=== PATIENT | female | born 1965 | race Caucasian/White ===

== ENCOUNTER 2017-05-26 11:31 | Emergency (ER) | payer OTHER ==
--- NOTE | 2017-05-26 12:04 | ER Document Report ---
ED GI/ - General Chief Complaint: Loose Stools Stated Complaint: POSSIBLE VIRUS Time Seen by Provider: 05/26/17 11:58 Mode of Arrival: Ambulatory Information source: Patient TRAVEL OUTSIDE OF THE [place] IN LAST 30 DAYS: No - HPI Patient complains to provider of: Other - loose stool Onset: Just prior to arrival - pt. had been taking care of her dad at home before he recently got admitted to [facility] (where he is now). He was recently diagnosed with C. diff and daughter wants to know if she contracted it as well. - Related Data Allergies/Adverse Reactions: sumatriptan [From Imitrex] Allergy (Intermediate, Verified 05/26/17 11:43) breathing issues sumatriptan succinate [From Imitrex] Allergy (Intermediate, Verified 05/26/17 11 :43) breathing issues topiramate [From Topamax] Allergy (Mild, Verified 05/26/17 11:43) grinding, clenching aspirin [Aspirin] Adverse Reaction (Verified 05/26/17 11:43) Nausea Past Medical History - Social History Smoking Status: Never Smoker Chew tobacco use (# tins/day): No Frequency of alcohol use: Rare Drug Abuse: None Family History: Reviewed & Not Pertinent - Past Medical History Cardiac Medical History: Denies: Hx Coronary Artery Disease, Hx Heart Attack, Hx Hypercholesterolemia , Hx Hypertension Pulmonary Medical History: Denies: Hx Asthma, Hx Bronchitis, Hx COPD, Hx Pneumonia Neurological Medical History: Denies: Hx Cerebrovascular Accident, Hx Seizures Renal/ Medical History: Denies: Hx Peritoneal Dialysis Musculoskeltal Medical History: Denies Hx Arthritis Past Surgical History: Reports: Hx Abdominal Surgery, Hx Section, Hx Hysterectomy, Hx Tonsillectomy, Hx Urinary Tract Surgery - bladder sling. Denies: Hx Pacemaker - Immunizations Hx Diphtheria, Pertussis, Tetanus Vaccination: No Review of Systems - Review of Systems EENT: No symptoms reported Cardiovascular: No symptoms reported Respiratory: No symptoms reported Gastrointestinal: Other - mucous in stool Musculoskeletal: No symptoms reported -: Yes All other systems reviewed and negative Physical Exam - Vital signs Vitals: Temp Pulse Resp BP Pulse Ox 98.2 F 70 16 142/78 H 95 05/26/17 11:45 05/26/17 11:45 05/26/17 11:45 05/26/17 11:45 05/26/17 11:45 - General General appearance: Appears well In distress: None - Respiratory Respiratory status: No respiratory distress Breath sounds: Normal - Cardiovascular Rhythm: Regular Heart sounds: Normal auscultation - Abdominal Inspection: Normal Bowel sounds: Normal Tenderness: Nontender Organomegaly: No organomegaly Course - Vital Signs Vital signs: Temp Pulse Resp BP Pulse Ox 98.2 F 70 16 142/78 H 95 05/26/17 11:45 05/26/17 11:45 05/26/17 11:45 05/26/17 11:45 05/26/17 11:45
[2017-05-26 13:41] VITALS: BP 137/82
== END 2017-05-26 13:40 | disposition home or self-care (01) ==
LOC: ER 11:31
DX: R19.7 Diarrhea, unspecified (principal); Z90.710 Acquired absence of both cervix and uterus; Z88.6 Allergy status to analgesic agent
CPT/HCPCS: 87045; 87205; 87493; 99284

== ENCOUNTER → 2018-11-24 | Outpatient (CLI) | payer OTHER ==
--- NOTE | 2018-11-24 15:49 | WOMENS IMAGING REPORT ---
EXAM DESCRIPTION: BILAT SCREENING MAMMO W/CAD COMPLETED DATE/TIME: 11/24/2018 1:53 pm REASON FOR STUDY: Z12.31 SCREENING MAMMO Z12.31 ENCNTR SCREEN MAMMOGRAM FOR MALIGNANT NEOPLASM OF B RE COMPARISON: None. TECHNIQUE: Standard craniocaudal and mediolateral oblique views of each breast recorded using TellMia l acquisition. LIMITATIONS: None. FINDINGS: No masses, calcifications or architectural distortion. No areas of suspicion. Read with the assistance of CAD. .[facility] - R2 Cenova Version 1.3 .[facility] - R2 Cenova Version 1.3 .[facility] - R2 Cenova Version 2.4 .[facility] - R2 Cenova Version 2.4 .[facility] - R2 Studio Grip Version 9.2 IMPRESSION: NORMAL MAMMOGRAM. BIRADS 1. BREAST DENSITY: b. There are scattered areas of fibroglandular density. BIRAD: 1 NEGATIVE RECOMMENDATION: ROUTINE SCREENING COMMENT: The patient has been notified of the results by letter per SA requirements. Additional no tification policies are in place for contacting patient with suspicious or incomplete findings. Quality ID #[id number]: The [employer] recommends an annual screening mammogram for women aged 40 years or over. This facility utilizes a reminder system to ensure that all patients receive reminder letters, and/or direct phone calls for appointments. This includes reminders for routine scr eening mammograms, diagnostic mammograms, or other Breast Imaging Interventions when appropriate. Th is patient will be placed in the appropriate reminder system. The [employer] (ACR) has developed recommendations for screening MRI of the breast s in certain patient populations, to be used in conjunction with mammography. Breast MRI surveillanc e may be appropriate for women with more than 20% lifetime risk of developing breast cancer as deter mined by genetic testing, significant family history of the disease, or history of mantle radiation f or Hodgkins Disease. ACR Practice Guidelines 2008. TECHNICAL DOCUMENTATION: FINDING NUMBER: (1) ASSESSMENT: (1) JOB ID: [id number] [employer]- All Rights Reserved Reading location - IP/workstation name: [email or web address]
== END ==
LOC: WI 13:33
DX: Z12.31 Encounter for screening mammogram for malignant neoplasm of breast (principal)
CPT/HCPCS: 77067

== ENCOUNTER 2019-12-16 14:11 | Emergency (ER) | payer OTHER ==
[2019-12-16 14:17] VITALS: BP 151/88
--- NOTE | 2019-12-16 15:02 | ER Document Report ---
ED Medical Screen (RME) - General Chief Complaint: Head Injury Stated Complaint: FALL - HEAD/NECK PAIN, POSSIBLE FAINTING Time Seen by Provider: 12/16/19 14:51 Primary Care Provider: NAYAN ATKINSON MD [Primary Care Provider] - Follow up as needed TRAVEL OUTSIDE OF THE [place]. IN LAST 30 DAYS: No - HPI Notes: 12/16/19 14:58 Patient is a 53-year-old female with no pertinent past medical history who presents complaining of syncopal episode, head injury, right thumb injury this morning. Patient states that she woke up suddenly having the urge to urinate and immediately went to the bathroom at 6:45 AM and then began urinating when she started to feel lightheaded and dizzy as if she was going to pass out. Patient states that she reached for the wall and jammed her finger nail causing some bleeding, but her head between her legs, and then woke up on the floor. She was not out for a long period time as her got into the bathroom to help her. Patient states that she was diaphoretic thereafter. She does have some nausea, mild right-sided neck pain, and a mild headache. Patient is requesting a CT of her head be performed. She has otherwise been able to eat and drink without difficulty. She is urinating normally and having normal bowel movements aside from some diarrhea recently. No fever, chest pain, shortness of breath, abdominal pain, changes in vision/mentation, muscle paralysis/weakness, loss of control bowel/bladder. I did review risk/benefit of CT imaging of the head with patient who is requesting at this time. I have treated and performed a rapid initial assessment of this patient. A comprehensive ED assessment and evaluation of the patient, analysis of test results and completion of medical decision making process will be conducted by additional ED providers. PHYSICAL EXAMINATION: GENERAL: Well-appearing, well-nourished and in no acute distress. A&Ox4. Answers questions appropriately. Head: Atraumatic with mild tenderness to the superior frontal area without bogginess. No goldsmith sign. Eyes: No raccoon eyes or entrapment. PERRLA, EOMI bilaterally Ears: No hemotympanum Neuro: Cranial nerves grossly intact, NIH 0, GCS 15. Normal gait. Neck: No midline tenderness - Related Data Allergies/Adverse Reactions: sumatriptan [From Imitrex] Allergy (Intermediate, Verified 05/26/17 11:43) breathing issues sumatriptan succinate [From Imitrex] Allergy (Intermediate, Verified 05/26/17 11:43) breathing issues topiramate [From Topamax] Allergy (Mild, Verified 05/26/17 11:43) grinding, clenching aspirin [Aspirin] Adverse Reaction (Verified 05/26/17 11:43) Nausea Past Medical History - Social History Frequency of alcohol use: Occasional Drug Abuse: None - Past Medical History Cardiac Medical History: Denies: Hx Coronary Artery Disease, Hx Heart Attack, Hx Hypercholesterolemia, Hx Hypertension Pulmonary Medical History: Denies: Hx Asthma, Hx Bronchitis, Hx COPD, Hx Pneumonia Neurological Medical History: Denies: Hx Cerebrovascular Accident, Hx Seizures Renal/ Medical History: Denies: Hx Peritoneal Dialysis Musculoskeltal Medical History: Denies Hx Arthritis Past Surgical History: Reports: Hx Abdominal Surgery, Hx Section, Hx Hysterectomy, Hx Tonsillectomy, Hx Urinary Tract Surgery - bladder sling. Denies: Hx Pacemaker - Immunizations Hx Diphtheria, Pertussis, Tetanus Vaccination: No Physical Exam - Vital signs Vitals: Temp Pulse Resp BP Pulse Ox 98.8 F 82 16 151/88 H 98 12/16/19 14:16 12/16/19 14:16 12/16/19 14:16 12/16/19 14:16 12/16/19 14:16 Course - Vital Signs Vital signs: Temp Pulse Resp BP Pulse Ox 98.8 F 82 16 151/88 H 98 12/16/19 14:16 12/16/19 14:16 12/16/19 14:16 12/16/19 14:16 12/16/19 14:16 Doctor's Discharge - Discharge Referrals: NAYAN ATKINSON MD [Primary Care Provider] - Follow up as needed
[2019-12-16] MEDS ORDERED: ACETAMINOPHEN 325 MG TABLET PO ONE (15:03)
[2019-12-16] MEDS ORDERED: METOCLOPRAMIDE HCL 10 MG TABLET PO ONE (15:03)
--- NOTE | 2019-12-16 15:32 | RADIOLOGY REPORT (SQ) ---
EXAM DESCRIPTION: CT HEAD WITHOUT COMPLETED DATE/TIME: 12/16/2019 3:09 pm REASON FOR STUDY: syncopal episode, head injury COMPARISON: None. TECHNIQUE: Axial images acquired through the brain without intravenous contrast. Images reviewed wi th bone, brain and subdural windows. Additional sagittal and coronal reconstructions were generated. Images stored on PACS. All CT scanners at this facility use dose modulation, iterative reconstruction, and/or weight based d osing when appropriate to reduce radiation dose to as low as reasonably achievable (ALARA). [facility]: Dose Right [facility]: CareDose [facility]: Dose Right [facility]: Teradose 4D [facility]: Medio RADIATION DOSE: CT Rad equipment meets quality standard of care and radiation dose reduction techniq ues were employed. CTDIvol: 53.2 mGy. DLP: 991 mGy-cm. mGy. LIMITATIONS: None. FINDINGS: VENTRICLES: Normal size and contour. CEREBRUM: No masses. No hemorrhage. No midline shift. No evidence for acute infarction. Normal gra y/white matter differentiation. No areas of low density in the white matter. CEREBELLUM: No masses. No hemorrhage. No alteration of density. No evidence for acute infarction. EXTRAAXIAL SPACES: No fluid collections. No masses. ORBITS AND GLOBE: No intra- or extraconal masses. Normal contour of globe without masses. CALVARIUM: No fracture. PARANASAL SINUSES: No fluid or mucosal thickening. SOFT TISSUES: No mass or hematoma. OTHER: No other significant finding. IMPRESSION: NORMAL BRAIN CT WITHOUT CONTRAST. EVIDENCE OF ACUTE STROKE: NO. COMMENT: Quality ID # [id number]: Final reports with documentation of one or more dose reduction techniques (e.g., Automated exposure control, adjustment of the mA and/or kV according to patient size, use of iterative reconstruction technique) TECHNICAL DOCUMENTATION: JOB ID: [id number] 2010 [employer] [place]- All Rights Reserved Reading location - IP/workstation name: [email or web address]
[2019-12-16 15:46] LABS: ABSOLUTE BASOPHILS # (AUTO) 0.1 10^3/uL (0.0-0.2); ABSOLUTE EOSINOPHILS # (AUTO) 0.1 10^3/uL (0.0-0.6); ABSOLUTE LYMPHOCYTES (AUTO) 1.7 10^3/uL (0.5-4.7); ABSOLUTE MONOCYTES (AUTO) 0.7 10^3/uL (0.1-1.4); ABSOLUTE NEUT (AUTO) 5.4 10^3/uL (1.7-8.2); EOSINOPHILS % (AUTO) 1.4 % (0-6); HEMATOCRIT 42.8 % (36.0-47.0); HEMOGLOBIN 14.9 g/dL (12.0-15.5); LYMPHOCYTES % (AUTO) 21.8 % (13-45); MEAN CORPUSCULAR HEMOGLOBIN 30.8 pg (27.0-33.4); MEAN CORPUSCULAR HGB CONC 34.8 g/dL (32.0-36.0); MEAN CORPUSCULAR VOLUME 89 fl (80-97); MONOCYTES % (AUTO) 8.7 % (3-13); PLATELET COUNT 352 10^3/uL (150-450); RED BLOOD COUNT 4.83 10^6/uL (3.72-5.28); RED CELL DISTRIBUTION WIDTH 12.5 % (11.5-14.0); SEGMENTED NEUTROPHILS % (AUTO) 67.1 % (42-78); TOTAL CELLS COUNTED % (AUTO) 100 %
[2019-12-16 15:55] LABS: APPEARANCE,URINE SLIGHTLY-CLOUDY; BILIRUBIN,URINE NEGATIVE (NEGATIVE); COLOR,URINE YELLOW; GLUCOSE, URINE NEGATIVE (NEGATIVE); KETONES,URINE NEGATIVE (NEGATIVE); PROTEIN,URINE NEGATIVE (NEGATIVE); URINE SPECIFIC GRAVITY 1.011; UROBILINOGEN,URINE NEGATIVE mg/dL (<2.0)
[2019-12-16 16:04] LABS: ALBUMIN 4.4 g/dL (3.5-5.0); ALKALINE PHOSPHATASE 80 U/L (38-126); ANION GAP 8 (5-19); ASPARTATE AMINO TRANSFERASE 32 U/L (14-36); BILIRUBIN,TOTAL 0.4 mg/dL (0.2-1.3); BLOOD UREA NITROGEN 11 mg/dL (7-20); CALCIUM 9.7 mg/dL (8.4-10.2); CARBON DIOXIDE 26 mmol/L (22-30); CHLORIDE 104 mmol/L (98-107); GLUCOSE 82 mg/dL (75-110); POTASSIUM 4.1 mmol/L (3.6-5.0); TOTAL PROTEIN 7.1 g/dL (6.3-8.2)
--- NOTE | 2019-12-16 16:06 | RADIOLOGY REPORT (SQ) ---
EXAM DESCRIPTION: HAND RIGHT 3 VIEWS COMPLETED DATE/TIME: 12/16/2019 3:41 pm REASON FOR STUDY: Rt thumb pain s/p injury COMPARISON: None. EXAM PARAMETERS: NUMBER OF VIEWS: Three views. TECHNIQUE: AP, lateral and oblique radiographic images acquired of the right hand. LIMITATIONS: None. FINDINGS: MINERALIZATION: Normal. BONES: No acute fracture or dislocation. No worrisome bone lesions. JOINTS: No effusions. SOFT TISSUES: No soft tissue swelling. No foreign body. OTHER: No other significant finding. IMPRESSION: NEGATIVE STUDY OF THE RIGHT HAND. NO RADIOGRAPHIC EVIDENCE OF ACUTE INJURY. TECHNICAL DOCUMENTATION: JOB ID: [id number] 2010 [employer]- All Rights Reserved Reading location - IP/workstation name: [email or web address]
--- NOTE | 2019-12-16 17:49 | ER Document Report ---
ED General - General Chief Complaint: Head Injury Stated Complaint: FALL - HEAD/NECK PAIN, POSSIBLE FAINTING Time Seen by Provider: 12/16/19 14:51 Primary Care Provider: NAYAN ATKINSON MD [Primary Care Provider] - Follow up as needed Notes: Patient is a 53-year-old white female with a past medical history significant for hypothyroidism, hysterectomy with prior fibroids who presents to the emergency department today with a chief complaint of head injury. The patient reports that she was rushing to the bathroom this morning to urinate. She states she grabbed the drywall with her right hand and the nail got caught on the wall and was partially avulsed. She reports this happened at the same time that she sat down on the toilet. She states that the pain was so severe she felt a sudden bryan throughout her body and felt like she was going to pass out. She states she quickly lowered her head between her knees to try to avoid losing consciousness but reports syncopal episode falling forward striking her head on what she suspects was the door frame. She is unsure how long she was unconscious but states her thinks about 2 minutes. She states when she awoke she had soreness to the top of her head and was bleeding from the right thumb. She states that throughout the day she has had some ongoing headache and a little bit of nausea so she was concerned and came for a head CT. She states she feels otherwise fine. She denies any chest pain or shortness of breath. Denies any visual disturbances or dizziness. Denies any neck pain or lower extremity pain or swelling. TRAVEL OUTSIDE OF THE [place] IN LAST 30 DAYS: No - Related Data Allergies/Adverse Reactions: sumatriptan [From Imitrex] Allergy (Intermediate, Verified 05/26/17 11:43) breathing issues sumatriptan succinate [From Imitrex] Allergy (Intermediate, Verified 05/26/17 11:43) breathing issues topiramate [From Topamax] Allergy (Mild, Verified 05/26/17 11:43) grinding, clenching aspirin [Aspirin] Adverse Reaction (Verified 05/26/17 11:43) Nausea Past Medical History - Social History Smoking Status: Never Smoker Frequency of alcohol use: Occasional Drug Abuse: None Family History: Reviewed & Not Pertinent Patient has suicidal ideation: No Patient has homicidal ideation: No - Past Medical History Cardiac Medical History: Denies: Hx Coronary Artery Disease, Hx Heart Attack, Hx Hypercholesterolemia, Hx Hypertension Pulmonary Medical History: Denies: Hx Asthma, Hx Bronchitis, Hx COPD, Hx Pneumonia Neurological Medical History: Denies: Hx Cerebrovascular Accident, Hx Seizures Renal/ Medical History: Denies: Hx Peritoneal Dialysis Musculoskeletal Medical History: Denies Hx Arthritis Past Surgical History: Reports: Hx Abdominal Surgery, Hx Section, Hx Hysterectomy, Hx Tonsillectomy, Hx Urinary Tract Surgery - bladder sling. Denies: Hx Pacemaker - Immunizations Hx Diphtheria, Pertussis, Tetanus Vaccination: No Review of Systems - Review of Systems Gastrointestinal: Nausea Skin: Other - Fingernail injury Neurological/Psychological: Other - Syncopal episode -: Yes All other systems reviewed and negative Physical Exam - Vital signs Vitals: Temp Pulse Resp BP Pulse Ox 98.8 F 82 16 151/88 H 98 12/16/19 14:16 12/16/19 14:16 12/16/19 14:16 12/16/19 14:16 12/16/19 14:16 - General General appearance: Appears well, Alert In distress: None - HEENT Head: Normocephalic, Atraumatic Eyes: Normal Conjunctiva: Normal Eyelashes: Normal Pupils: PERRL Ears: Normal External canal: Normal Tympanic membrane: Normal Nasal: Normal Mouth/Lips: Normal Mucous membranes: Normal Pharynx: Normal Neck: Normal - Respiratory Respiratory status: No respiratory distress Chest status: Nontender Breath sounds: Normal Chest palpation: Normal - Cardiovascular Rhythm: Regular Heart sounds: Normal auscultation Murmur: No - Extremities General upper extremity: Normal inspection, Nontender, Normal color, Normal ROM, Normal temperature General lower extremity: Normal inspection, Nontender, Normal color, Normal ROM, Normal temperature, Normal weight bearing. No: Rich's sign - Neurological Neuro grossly intact: Yes Cognition: Normal Orientation: AAOx4 [place] Coma Scale Eye Opening: Spontaneous Rachel Coma Scale Verbal: Oriented Rachel Coma Scale Motor: Obeys Commands Rachel Coma Scale Total: 15 Speech: Normal Cranial nerves: Normal Cerebellar coordination: Normal Motor strength normal: LUE, RUE, LLE, RLE Additional motor exam normals: Equal clinical product specialist Sensory: Normal - Psychological Associated symptoms: Normal affect, Normal mood - Skin Skin Temperature: Warm Skin Moisture: Dry Skin Color: Normal Course - Re-evaluation Re-evalutation: 12/16/19 17:47 Work-up largely unremarkable. History with a vasovagal-like syncope. She is low risk per Ariton syncope rules. Has a negative work-up. Suspect mild concussion. Counseled her regarding precaution protocol for concussion. Discussed with her the importance of outpatient follow-up and advised that she return here or any ER immediately with any new, persistent or worsening symptoms. She verbalized understood and agreed. - Vital Signs Vital signs: Temp Pulse Resp BP Pulse Ox 98.8 F 82 16 151/88 H 98 12/16/19 14:16 12/16/19 14:16 12/16/19 14:16 12/16/19 14:16 12/16/19 14:16 - Laboratory Result Diagrams: 12/16/19 15:30 12/16/19 15:30 Laboratory results interpreted by me: 12/16/19 15:30 Creatinine 0.50 L ALT 45 H Discharge - Discharge Clinical Impression: Fingernail avulsion Qualifiers: Encounter type: initial encounter Qualified Code(s): S61.309A - Unspecified open wound of unspecified finger with damage to nail, initial encounter Syncopal episodes Qualifiers: Syncope type: unspecified Qualified Code(s): R55 - Syncope and collapse Head contusion Qualifiers: Encounter type: initial encounter Contusion of head detail: unspecified part of head Qualified Code(s): S00.93XA - Contusion of unspecified part of head, initial encounter Concussion Qualifiers: Encounter type: initial encounter Loss of consciousness presence/duration: with LOC of 30 min or less Qualified Code(s): S06.0X1A - Concussion with loss of consciousness of 30 minutes or less, initial encounter Condition: Stable Disposition: HOME, SELF-CARE Instructions: Concussion ([facility]) Additional Instructions: Follow-up with your regular doctor in 2 to 3 days for reevaluation. Return here or any ER immediately with any new, persistent or worsening symptoms. Referrals: NAYAN ATKINSON MD [Primary Care Provider] - Follow up as needed
--- NOTE | 2019-12-16 23:29 | EKG REPORT ---
SEVERITY:- BORDERLINE ECG - SINUS RHYTHM BORDERLINE RIGHT AXIS DEVIATION : Confirmed by: Niraj Duoglas MD 16-Dec-2019 23:29:13
== END 2019-12-16 18:20 | disposition home or self-care (01) ==
LOC: ER 14:11
DX: S06.0X1A Concussion with loss of consciousness of 30 minutes or less, initial encounter (principal); W18.11XA Fall from or off toilet without subsequent striking against object, initial encounter; Y93.89 Activity, other specified; S61.101A Unspecified open wound of right thumb with damage to nail, initial encounter; W45.0XXA Nail entering through skin, initial encounter; R55 Syncope and collapse; R11.0 Nausea; Z88.6 Allergy status to analgesic agent
CPT/HCPCS: 36415; 70450; 80053; 81001; 85025; 93005; 93010; 99284